=== PATIENT | male | born 1970 | race Caucasian/White ===

== ENCOUNTER 2017-12-24 11:42 | Emergency (ER) | payer MEDICARE ==
[2017-12-24] MEDS ORDERED: Ketorolac Tromethamine 30 MG/ML VIAL ONE (11:57)
[2017-12-24] MEDS ORDERED: HYDROcodone/Acetaminophen 10/325 mg Tablet ONE (11:57)
== END 2017-12-24 12:15 | disposition home or self-care (01) ==
LOC: BURERS 11:42
DX: M54.5 Low back pain (principal); G89.29 Other chronic pain; Z86.711 Personal history of pulmonary embolism; Z86.718 Personal history of other venous thrombosis and embolism; F43.10 Post-traumatic stress disorder, unspecified; Z79.899 Other long term (current) drug therapy
CPT/HCPCS: 96372; J1885